=== PATIENT | female | born 1955 | race Hispanic/Latino ===

== ENCOUNTER 2017-11-21 15:44 | Outpatient (CLI) | payer OTHER | END 2017-11-21 15:45 | disposition home or self-care (01) | LOC: BICMAMMO 15:44 | PROVIDERS: ATTEND Family Medicine | DX: Z12.31 Encounter for screening mammogram for malignant neoplasm of breast (principal); R92.1 Mammographic calcification found on diagnostic imaging of breast; Z80.3 Family history of malignant neoplasm of breast | CPT/HCPCS: 77067 ==

== ENCOUNTER 2019-07-13 13:19 | Outpatient (CLI) | payer MEDICARE ==
--- NOTE | 2019-07-13 14:53 | MMO ---
Bilateral MAMMO Bilat Screen [facility]. CLINICAL HISTORY: Patient is 63 years old and is seen for screening. The patient has the following family history of breast cancer: cousin female, at age 60, malignant (generic). The patient has no personal history of cancer. VIEWS: The views performed were: bilateral craniocaudal with tomosynthesis and bilateral mediolateral oblique with tomosynthesis. This study has been interpreted with the assistance of computer-aided detection. MAMMOGRAM FINDINGS: The breasts are heterogeneously dense, which could obscure a lesion on mammography. There is a mass measuring 8 millimeters with obscured margins seen in the lower-outer region of the right breast. In the left breast, there are no suspicious masses, calcifications or areas of architectural distortion. IMPRESSION: MASS IN THE RIGHT BREAST REQUIRES ADDITIONAL EVALUATION. ADDITIONAL IMAGING. THE RESULTS OF THIS EXAM WERE SENT TO THE PATIENT. ACR BI-RADS Category 0 - Incomplete: Need additional imaging evaluation. [facility] will notify the patient of the need for additional imaging services. MAMMOGRAPHY NOTE: 1. A negative mammogram report should not delay a biopsy if a dominant of clinically suspicious mass is present. 2. Approximately 10% to 15% of breast cancers are not detected by mammography. 3. Adenosis and dense breasts may obscure an underlying neoplasm. Reported by: LYNDA HOWELL MD Electonically Signed: [id number]
== END 2019-07-13 13:20 | disposition home or self-care (01) ==
LOC: BICMAMMO 13:19
PROVIDERS: ATTEND Family Medicine
DX: Z12.31 Encounter for screening mammogram for malignant neoplasm of breast (principal); Z80.3 Family history of malignant neoplasm of breast; N63.10 Unspecified lump in the right breast, unspecified quadrant
CPT/HCPCS: 77063; 77067

== ENCOUNTER 2019-07-16 12:50 | Outpatient (CLI) | payer MEDICARE ==
--- NOTE | 2019-07-16 14:09 | ULT ---
LIMITED RIGHT BREAST ULTRASOUND: HISTORY: Abnormal mammogram finding. FINDINGS: In the upper right breast at the 10 o'clock position, 4 cm from the nipple, there is a 0.7 x 1.1 cm c yst accounting for the mammographic finding. In addition, at the inferior aspect of the right breast, at the 5 o'clock position, 2 cm from the nipple, there appear to be at least three smaller cysts, up to 0.6 cm in size. IMPRESSION: BI-RADS category 2 - benign findings. Continued routine screening mammograms. POS: OFF
--- NOTE | 2019-07-22 10:56 | MMO ---
Right Breast Ez 3D Diagnostic Rt W CAD. CLINICAL HISTORY: Patient is 63 years old and is seen for additional evaluation requested from prior study. The patient has the following family history of breast cancer: cousin female, at age 60, malignant (generic). The patient has no personal history of cancer. VIEWS: The views performed were: right craniocaudal spot compression with tomosynthesis; right mediolateral oblique spot compression with tomosynthesis; and right mediolateral with tomosynthesis. FILMS COMPARED: The present examination has been compared to a prior imaging study performed at [facility] on 07/13/2019. This study has been interpreted with the assistance of computer-aided detection. Standard digital mammography was supplemented by the acquisition of digital breast tomosynthesis. MAMMOGRAM FINDINGS: The breast is heterogeneously dense, which could obscure a lesion on mammography. Finding 1: There are stable benign appearing calcifications seen in the right breast. Finding 2: There is a round mass measuring 9 millimeters with circumscribed margins seen in the right breast at 10 o'clock. Cyst. Finding 3: There is a focal asymmetry seen in the right breast at 5 o'clock. small cysts. There are no suspicious masses, suspicious calcifications, or new areas of architectural distortion. IMPRESSION: THERE IS NO MAMMOGRAPHIC EVIDENCE OF MALIGNANCY. A ROUTINE FOLLOW-UP MAMMOGRAM IN 1 YEAR IS RECOMMENDED. ACR BI-RADS Category 2 - Benign finding MAMMOGRAPHY NOTE: 1. A negative mammogram report should not delay a biopsy if a dominant of clinically suspicious mass is present. 2. Approximately 10% to 15% of breast cancers are not detected by mammography. 3. Adenosis and dense breasts may obscure an underlying neoplasm. Reported by: MIKAELA DELATORRE MD Electonically Signed: [id number]
== END 2019-07-16 12:51 | disposition home or self-care (01) ==
LOC: BICMAMMO 12:50
PROVIDERS: ATTEND Family Medicine
DX: N63.10 Unspecified lump in the right breast, unspecified quadrant (principal); R92.8 Other abnormal and inconclusive findings on diagnostic imaging of breast
CPT/HCPCS: 76642; 77065; G0279

== ENCOUNTER 2020-08-12 13:07 | Outpatient (CLI) | payer MEDICARE ==
--- NOTE | 2020-08-12 14:07 | MMO ---
Bilateral MAMMO Bilat Screen [facility]. CLINICAL HISTORY: Patient is 64 years old and is seen for screening. The patient has the following family history of breast cancer: female cousin, at age 60, malignant (generic). The patient has no personal history of cancer. VIEWS: The views performed were: bilateral craniocaudal with tomosynthesis and bilateral mediolateral oblique with tomosynthesis. FILMS COMPARED: The present examination has been compared to prior imaging studies performed at [facility] on 07/13/2019 and 07/16/2019. This study has been interpreted with the assistance of computer-aided detection. MAMMOGRAM FINDINGS: The breasts are heterogeneously dense, which could obscure a lesion on mammography. Finding 1: There are multiple masses of varying size with circumscribed margins seen in the right breast. Finding 2: There are stable benign appearing calcifications seen in both breasts. There are also vascular calcifications. There are no suspicious masses, suspicious calcifications, or new areas of architectural distortion. IMPRESSION: THERE IS NO MAMMOGRAPHIC EVIDENCE OF MALIGNANCY. A ROUTINE FOLLOW-UP MAMMOGRAM IN 1 YEAR IS RECOMMENDED. THE RESULTS OF THIS EXAM WERE SENT TO THE PATIENT. ACR BI-RADS Category 2 - Benign finding MAMMOGRAPHY NOTE: 1. A negative mammogram report should not delay a biopsy if a dominant of clinically suspicious mass is present. 2. Approximately 10% to 15% of breast cancers are not detected by mammography. 3. Adenosis and dense breasts may obscure an underlying neoplasm. Reported by: MIGUEL SPARKS MD Electonically Signed: [id number]
== END 2020-08-12 13:08 | disposition home or self-care (01) ==
LOC: BICMAMMO 13:07
PROVIDERS: ATTEND Family Medicine
DX: Z12.31 Encounter for screening mammogram for malignant neoplasm of breast (principal); Z80.3 Family history of malignant neoplasm of breast
CPT/HCPCS: 77063; 77067

== ENCOUNTER 2024-02-05 13:54 | Outpatient (CLI) | payer OTHER | END 2024-02-05 13:55 | disposition home or self-care (01) | LOC: BICULT 13:54 | PROVIDERS: ATTEND Student in an Organized Health Care Education/Training Program | DX: N63.11 Unspecified lump in the right breast, upper outer quadrant (principal); N63.21 Unspecified lump in the left breast, upper outer quadrant ==

== ENCOUNTER 2024-03-06 06:06 | Day surgery (SDC) | payer OTHER ==
[2024-03-02 08:58] VITALS: BMI 35.7
[2024-03-06] MEDS ORDERED: Vasopressin 20 UNITS/ML VIAL ONE (06:52)
[2024-03-06] MEDS ORDERED: Lidocaine 2% PF 5 ML VIAL ONE ×3 (06:58→11:15)
[2024-03-06] MEDS ORDERED: PROPOFOL 20 ML ONE (06:58)
[2024-03-06] MEDS ORDERED: Lidocaine 2% PF 100 mg/5 ml Syringe ONE (07:02)
[2024-03-06] MEDS ORDERED: EPINEPHrine 1 MG/ML VIAL ONE ×2 (07:02→07:26)
[2024-03-06] MEDS ORDERED: Bupivacaine 0.25% HCL 30 ML VIAL ONE ×2 (07:02→07:26)
[2024-03-06] MEDS ORDERED: Meropenem 1 GM in Sodium Chloride 0.9% 100 ML IVPB SCH (11:00)
[2024-03-06] MEDS ORDERED: Isosulfan Blue 50 MG/5 ML VIAL ONE (11:29)
[2024-03-06] MEDS ORDERED: fentaNYL 50 mcg/mL 1 mL Vial ONE ×3 (11:59→14:15)
[2024-03-06] MEDS ORDERED: Ondansetron PF 4 MG/2 ML Vial ONE (12:02)
[2024-03-06] MEDS ORDERED: Dexamethasone 4 mg/ml Vial ONE (12:02)
[2024-03-06] MEDS ORDERED: PHENYLEPHRINE-NS 100 MCG/ML 10 ML SYRINGE ONE (12:04)
[2024-03-06] MEDS ORDERED: ePHEDrine Sulfate 50 MG/10 ML VIAL ONE (12:17)
[2024-03-06] MEDS ORDERED: fentaNYL PF 100 MCG/2 ML SYRINGE ONE (12:40)
[2024-03-06] MEDS ORDERED: HYDROcodone/Acetaminophen 5/325 mg Tablet ONE (15:08)
== END 2024-03-06 16:28 | disposition home or self-care (01) ==
LOC: SDC 06:06
PROVIDERS: ATTEND Surgery
PROC: 0HBT0ZZ Excision of Right Breast, Open Approach (ICD-10-PCS; principal; 2024-03-06)
PROC: 0JH60WZ Insertion of Totally Implantable Vascular Access Device into Chest Subcutaneous Tissue and Fascia, Open Approach (ICD-10-PCS; 2024-03-06)
DX: C50.912 Malignant neoplasm of unspecified site of left female breast (principal); E11.9 Type 2 diabetes mellitus without complications; Z79.85 Long-term (current) use of injectable non-insulin antidiabetic drugs; Z88.1 Allergy status to other antibiotic agents; Z88.0 Allergy status to penicillin; Z88.2 Allergy status to sulfonamides; Z88.8 Allergy status to other drugs, medicaments and biological substances; Z79.4 Long term (current) use of insulin; Z86.010 Personal history of colon polyps
CPT/HCPCS: 19281; 19301; 36561; 38525; 38900; 71045; 76098; 78195; 82962; A6258; A9541; C1713; C1788; J0171; J0665; J1100; J1642; J2001; J2185; J2405; J2704; J3010; Q9968; 36416; 88307; 88341; 88342